=== PATIENT | male | born 1960 | race Caucasian/White ===

== ENCOUNTER 2019-01-09 17:50 | Emergency (ER) | payer OTHER ==
[~2019-01-09] VITALS: Ht 185.4 cm; Wt 59.0 kg
[~2019-01-09 17:50] MED LIST: BISACODYL SUPP10 MG RE; DIFLUCAN PO; ELESTAT5 ML OPHTHALMIC; NORPRAMIN10 MG PO; OXYCODONE HCL 55 MG PO; PERCOCET 10-321 EACH PO; PROAIR HFA8.5 GM IH; VALIUM5 MG PO
[2019-01-09] MEDS ORDERED: TYLENOL325 MG PO (19:17)
[2019-01-09] MEDS ORDERED: FAMOTIDINE 20 M20 MG PO (19:18)
[2019-01-09] MEDS ORDERED: MARINOL 2.5 MG2.5 M1 PO (19:18)
[2019-01-09] MEDS ORDERED: COLACE100 MG PO (19:18)
[2019-01-09] MEDS ORDERED: LASIX 20 MG TAB20 MG PO (19:18)
[2019-01-09] MEDS ORDERED: GENTLE LAXATIVE10 MG RECTAL (19:19)
[2019-01-09] MEDS ORDERED: IPRAT-ALBUT 0.5-3 ML INH (19:20)
[2019-01-09] MEDS ORDERED: LATUDA40 MG PO (19:21)
[2019-01-09] MEDS ORDERED: SYNTHROID75 MCG PO (19:21)
[2019-01-09] MEDS ORDERED: OXYCODONE HCL 55 MG PO (19:22)
[2019-01-09] MEDS ORDERED: PEG3350510 GM PO (19:22)
[2019-01-09] MEDS ORDERED: VENTOLIN HFA 1818 GM INH (19:23)
[2019-01-09] MEDS ORDERED: KLOR-CON 1010 MEQ PO (19:23)
[2019-01-09] MEDS ORDERED: SENNA8.6 MG PO (19:23)
[2019-01-09] MEDS ORDERED: THEREMS-M1 EACH PO (19:24)
[2019-01-09 22:54] LABS: URINE BILIRUBIN NEGATIVE (Negative); URINE BLOOD 3+ (Negative); URINE CLARITY TURBID; URINE COLOR YELLOW; URINE GLUCOSE-RANDOM* NEGATIVE (Negative); URINE KETONES NEGATIVE (Negative); URINE PROTEIN (DIPSTICK) 3+ (Negative); URINE UROBILINOGEN 0.2 E.U./dl (0.2-1.0)
[2019-01-09 23:03] LABS: URINE LEUKOCYTES-REFLEX 3+ (Negative); URINE NITRITE-REFLEX POSITIVE (Negative)
[2019-01-09 23:06] LABS: BACTERIA-REFLEX >30 Many /HPF (None Seen); SQUAMOUS 4-10 Moderate /LPF (0-3); URINE RBC >20 Many /HPF (0-2); URINE WBC-REFLEX >25 Many /HPF (0-5); WBC CLUMPS Packed (None Seen)
[2019-01-09 23:07] LABS: CASTS None Seen /LPF (None Seen); CRYSTALS None Seen /LPF (None Seen); MUCUS 4-6 Moderate strn/LPF (None Seen)
[2019-01-09] MEDS ORDERED: LEVAQUIN 500 M500 M1 PO (23:32)
[2019-01-10 01:43] VITALS: BP 134/85
== END 2019-01-10 01:43 | disposition home or self-care (01) ==
LOC: ER 17:50
PROVIDERS: Emergency Medicine
DX: T83.098A Other mechanical complication of other urinary catheter, initial encounter (principal); J44.9 Chronic obstructive pulmonary disease, unspecified; F17.220 Nicotine dependence, chewing tobacco, uncomplicated; Z90.49 Acquired absence of other specified parts of digestive tract; Z88.8 Allergy status to other drugs, medicaments and biological substances; Y84.8 Other medical procedures as the cause of abnormal reaction of the patient, or of later complication, without mention of misadventure at the time of the procedure; Y92.89 Other specified places as the place of occurrence of the external cause